=== PATIENT | male | born 1990 | race African-American/Black ===

== ENCOUNTER 2021-08-10 08:35 | Emergency (ER) | payer SELFPAY ==
[~2021-08-10] VITALS: Ht 198.1 cm; Wt 93.0 kg
[2021-08-10] MEDS ORDERED: ACETAMINOPHEN 325MG TABLET PO ONE (09:00)
[2021-08-10] MEDS ORDERED: KETOROLAC 30MG/ML VIAL IM ONE (09:00)
[2021-08-10] MEDS ORDERED: CYCLOBENZAPRINE 10MG TABLET PO ONE (09:00)
[2021-08-10] MEDS ORDERED: CYCL5TAB MT (09:48)
[2021-08-10] MEDS ORDERED: IBUP-2030 MT (09:49)
[2021-08-10 10:24] VITALS: BP 135/69
== END 2021-08-10 10:25 | disposition home or self-care (01) ==
LOC: ER 08:35
DX: S76.011A Strain of muscle, fascia and tendon of right hip, initial encounter (principal); S46.911A Strain of unspecified muscle, fascia and tendon at shoulder and upper arm level, right arm, initial encounter; S29.012A Strain of muscle and tendon of back wall of thorax, initial encounter; W05.1XXA Fall from non-moving nonmotorized scooter, initial encounter; Y93.89 Activity, other specified; Y92.9 Unspecified place or not applicable; Z98.890 Other specified postprocedural states
CPT/HCPCS: 71045; 73502; 73552; 96372; 99284; J1885